=== PATIENT | female | born 1955 | race Caucasian/White ===

== ENCOUNTER 2021-05-12 10:34 | Emergency (ER) | payer SELFPAY ==
[2021-05-12 11:00] VITALS: BP 128/92; PULSE 83; TEMP 98.2; BMI 29.9
== END 2021-05-12 12:50 | disposition home or self-care (01) ==
LOC: FER 10:34
DX: H35.3220 Exudative age-related macular degeneration, left eye, stage unspecified (principal); R51.9 Headache, unspecified
CPT/HCPCS: 99283-25